=== PATIENT | male | born 1950 | race Caucasian/White ===

== ENCOUNTER 2016-07-18 07:14 | Day surgery (SDC) | payer OTHER ==
[~2016-07-18 07:14] MED LIST: Famotidine IV* 10 MG/ML 2 ML (20 mg) IV ONE; HYDROcodone/ACETAMIN 5-325 MG* 1 TAB PO PRN; Morphine INJ* 2 MG/ML 1 ML SYRINGE IV PRN; PROCHLORPERAZINE INJ 5 MG/ML 2 ML VIAL IV PRN
[2016-07-18] MEDS ORDERED: Buffered Lidocaine 0.9% SYRIN* 5 ML/SYR SYRINGE ONE (07:21)
[2016-07-18] MEDS ORDERED: Famotidine IV* 10 MG/ML 2 ML (20 mg) ONE (07:21)
[2016-07-18] MEDS ORDERED: fentaNYL* 50 MCG/ML 2 ML VIAL (100 MCG VIAL) ONE ×2 (08:14→10:37)
[2016-07-18] MEDS ORDERED: KETAMINE HCL* 50 MG/ML 10 ML VIAL ONE (08:14)
[2016-07-18] MEDS ORDERED: Midazolam* 1 MG/ML 5 ML VIAL (5 MG) ONE (08:14)
[2016-07-18] MEDS ORDERED: Gelatin ADSORBABLE (OPHTH)* OPHTH.FILM ONE ×2 (09:25→10:02)
[2016-07-18] MEDS ORDERED: Lidocaine 2% EPI 1:200000 MPF* 20 ML VIAL ONE (09:25)
[2016-07-18] MEDS ORDERED: Gelfoam 12-7 ADSORBABL SPONGE* 1 EA SPONGE ONE ×2 (09:25→10:02)
[2016-07-18] MEDS ORDERED: Oxymetazoline 0.05% NASAL SPR* 15 ML BTL ONE (09:25)
[2016-07-18] MEDS ORDERED: Propofol* 10 MG/ML 20 ML BTL IV PUSH ONE (09:54)
[2016-07-18] MEDS ORDERED: Neostigmine Methylsulfate* 2 MG/2 ML SYRINGE ONE (09:54)
[2016-07-18] MEDS ORDERED: Ondansetron INJ* 2 MG/ML VIAL ONE (09:54)
[2016-07-18] MEDS ORDERED: Glycopyrrolate IV* 0.2 MG/ML 1 ML VIAL ONE (09:54)
[2016-07-18] MEDS ORDERED: Dexamethasone IV* 4 MG/ML 1 ML (4 MG) ONE (09:54)
[2016-07-18] MEDS ORDERED: Lidocaine 2% PF * 5 ML VIAL ONE (09:54)
[2016-07-18] MEDS ORDERED: hydrALAZINE IV* 20 MG/ML VIAL ONE (10:08)
[2016-07-18] MEDS ORDERED: Labetalol IV* 5 MG/ML 20 ML VIAL ONE (10:29)
[2016-07-18] MEDS: fentaNYL* 50 MCG/ML 2 ML VIAL (100 MCG VIAL) IV PRN ×2 (10:37→10:58)
[2016-07-18] MEDS ORDERED: HYDROcodone/ACETAMIN 5-325 MG* 1 TAB ONE (10:37)
[2016-07-18 11:38] VITALS: BP 134/83
--- NOTE | 2016-07-18 16:29 | OP ---
DATE OF OPERATION: 07/18/16 - [facility] DATE OF : 50. SURGEON: Sim Brnener MD. ANESTHESIOLOGIST: Ricky Unger MD ANESTHESIA: General. PRE-OPERATIVE DIAGNOSIS: Chronic sinusitis. POST-OPERATIVE DIAGNOSIS: Chronic sinusitis. OPERATIVE PROCEDURE: Bilateral video endoscopic maxillary antrostomy, anterior and posterior ethmoidectomy, bilateral. BRIEF HISTORY: This 66-year-old gentleman with chronic purulent rhinorrhea and chronic symptoms of sinusitis with nasal obstruction, not improving with medical management including prolonged course of oral steroids and prolonged courses of oral antibiotics and nasal steroids with nasal washes. DESCRIPTION OF PROCEDURE: The patient was taken to the operating room, general anesthesia was given and patient was intubated. The nose was decongested with Afrin placed pledgets. A 0-degree telescope, 30-degree telescope and other endoscopic sinus surgery instruments including a CT scan and microshaver were utilized. We turned our attention to the left side initially infiltrating the area of uncinate and middle turbinate with 2% lidocaine with epinephrine and subsequently uncinate process was identified and peeled out anteriorly using microshaver to remove it completely. The antrostomy was enlarged and copiously irrigated. The ethmoidal bulla was then resected coursing through the posterior cells and superiorly from the skull base to the nasal frontal duct area, laterally towards lamina papyracea. Small piece of Gelfilm, Gelfoam was used as a spacer between the middle turbinate and the lateral nasal wall. We turned our attention to the right side. Here too the uncinate process was identified. Thick purulent material was suctioned and sent for cultures and sensitivities for both aerobic and anaerobic. Further resection was carried out of the ethmoidal bulla and then subsequently through the lamella posteriorly and superiorly to the nasal frontal duct area laterally. Both spicules were removed. The area was packed with Gelfilm and Gelfoam. The patient was then awakened and sent to recovery room in stable condition. Instrument and sponge count correct. Blood loss minimal. [id number] #: [id number] MTDD
== END 2016-07-18 11:55 | disposition home or self-care (01) ==
LOC: OR 07:14
PROVIDERS: ATTEND Otolaryngology
DX: J32.4 Chronic pansinusitis (principal); J31.0 Chronic rhinitis; Z87.891 Personal history of nicotine dependence; I10 Essential (primary) hypertension
CPT/HCPCS: 87070; 87073; 87077; 87116; 87186; 87205; 87206; 88305; A9270-GY; J0360; J1100; J2250; J2405; J2704; J3010

== ENCOUNTER 2017-09-24 14:01 | Emergency (ER) | payer MEDICARE, OTHER ==
[2017-09-24 14:23] VITALS: BP 138/87
--- NOTE | 2017-09-24 15:14 | UC ---
Respiratory Complaint HPI - HPI Summary HPI Summary: The pt is a 67 y/o male presenting to c/o vomiting since about 2 weeks ago worse today. He notes weight loss of 9-10 lbs , bilateral temporal FOX rated at 10/10 at its worst, oral abscess in the upper jaw ( 1 month ago, alevuiated by a salty water gargle) , light headedness, chills , insomnia, subjective fever , back aches , and cough. He denies abd pain , rash , and dysuria. The pt had a FESS about a year ago and is concerned about a sinus infection. This is scribe Bridgette Driver documenting for attending Dr. Elias Villa. I, Dr. Elias Villa , personally performed the services described in this documentation as scribed in my presence and it is both accurate and complete. - History of Current Complaint Chief Complaint: UCRespiratory Stated Complaint: WEIGHT LOSS, RESP ISSUES Time Seen by Provider: 09/24/17 15:01 Hx Obtained From: Patient Onset/Duration: Gradual Onset, Lasting Weeks - 2 weeks, Still Present, Worse Since - Today Timing: Constant Severity Initially: Severe Severity Currently: Severe Pain Intensity: 9 Pain Scale Used: 0-10 Numeric Associated Signs And Symptoms: Positive: Fever - Subjective - Allergies/Home Medications Allergies/Adverse Reactions: Allergies Allergy/AdvReac Type Severity Reaction Status Date / Time oxycodone Allergy GI Upset Verified 09/24/17 14:23 ENVIRONMENTAL Allergy Congestion Uncoded 09/24/17 14:23 PMH/Surg Hx/FS Hx/Imm Hx Previously Healthy: No - PMHx of Sinusitis Cardiovascular History: Hypertension - Not in meds - Surgical History Surgical History: Yes Surgery Procedure, Year, and Place: detached retina, cataract surgery. Right shoulder repair 2013 - Family History Known Family History: Negative: Cardiac Disease, Hypertension, Diabetes - Social History Occupation: Retired Lives: With Family Alcohol Use: Daily Alcohol Amount: 1-2 drinks a day Substance Use Type: None Smoking Status (MU): Former Smoker Amount Used/How Often: smoked for approx 10 yrs 1ppd When Did the Patient Quit Smoking/Using Tobacco: quit 30 yrs ago Review of Systems Constitutional: Other - Positive: weight loss Gastrointestinal: Other - Abscess in the upper jaw 1 month ago Neurological: Headache - Bilateral at the temporal region All Other Systems Reviewed And Are Negative: Yes Physical Exam Triage Information Reviewed: Yes Vital Signs: Initial Vital Signs Temp 101.4 F 09/24/17 14:16 Pulse 111 09/24/17 14:16 Resp 18 09/24/17 14:16 BP 138/87 09/24/17 14:16 Pulse Ox 98 09/24/17 14:16 Diagnostic Evaluation - Laboratory O2 Sat by Pulse Oximetry: 98 Re-Evaluation - Re-Evaluation First Eval Re-Evaluation Time: 15:50 Change: Unchanged - The pt reports 4 episodes of blurry vision in the lower visual field of the R eye in the last 3 weeks. Each episode lasts 15 minutes. The pt who usually uses lenses bilaterally denies pain, rash or any visual deficits. There is no good visualization of the retina on exam. The provider advised the patient to visits his hearing specialist. Respiratory Course/Dx - Course Course Of Treatment: NO SOURCE OF FEVER FOUND OTHER THAN SINUSITIS. DISCUSSED GOING TO THE EMERGENCY DEPARTMENT FOR FURTHER EVALUATION AND CARE IF HE DOES NOT IMPROVE OR WORSENS. RX AUGMENTIN. LABS; CRP, CBC, CMP, PENDING. F/U OPHTHALMOLOGY FOR THE INTERMITTENT BLURRED VISION IN THE RIGHT EYE. - Differential Dx/Diagnosis Provider Diagnoses: SINUSITIS. FEVER. INTERMITTENT BLURRED VISION RIGHT EYE Discharge - Sign-Out/Discharge Documenting (check all that apply): Patient Departure - Discharge Plan Condition: Stable Disposition: HOME Prescriptions: Amoxicillin/Clavulanate TAB* [Augmentin TAB 875*] 875 mg PO BID #20 tab Patient Education Materials: Sinusitis (ED) Referrals: Татьяна Sanon MD [Primary Care Provider] - Additional Instructions: FOLLOW UP WITH YOUR DOCTOR. GO TO THE EMERGENCY DEPARTMENT FOR ANY WORSENING OF YOUR CONDITION OR QUESTIONS OR CONCERNS. - Billing Disposition and Condition Condition: STABLE Disposition: Home
[2017-09-24] MEDS ORDERED: Ibuprofen TAB* 600 MG PO ONE (15:17)
[2017-09-24] MEDS ORDERED: Ibuprofen TAB* 600 MG ONE (15:25)
[2017-09-24 18:57] LABS: ABS Basophils 0 10^3/ul (0-0.2); ABS Eosinophils 0 10^3/ul (0-0.6); ABS Lymphocytes 0.9 10^3/ul (1.0-4.8); ABS Monocytes 0.9 10^3/ul (0-0.8); ABS Neutrophils 12.2 10^3/ul (1.5-7.7); ABS Nucleated RBC 0 10^3/ul; Eosinophil % 0 % (0-6); Hematocrit 42 % (42-52); Hemoglobin 14.6 g/dl (14.0-18.0); Lymphocyte % 6.7 % (25-47); Mean Corpuscular HGB Conc 35 g/dl (31-36); Mean Corpuscular Hemoglobin 35 pg (27-31); Mean Corpuscular Volume 100 fL (80-94); Mean Platelet Volume 8.2 um3 (7.4-10.4); Nucleated Red Blood Cells % 0.1; Platelet Count 228 10^3/ul (150-450); Red Blood Count 4.17 10^6/ul (4.00-5.40); Red Cell Distribution Width 14 % (10.5-15); White Blood Count 14.1 10^3/ul (3.5-10.8)
[2017-09-24 19:15] LABS: EGFR Non-African American 71.2 (>60)
--- NOTE | 2017-09-25 12:33 | UC ---
- Progress Note Progress Note: CALLED AND SPOKE TO PT. INFORMED OF ELEVATED CRP, WBC AND LOW ELECTROLYTES. PT STATES HE IS FEELING MUCH BETTER TODAY THAN YESTERDAY. EVEN WENT OUT AND MOWED THE LAWN. ADVISED TO FOLLOW-UP WITH HIS PCP AND HAVE REPEAT LABS IN THE NEXT FEW DAYS. PT AGREES TO DO THIS. ALSO ADVISED TO GO TO THE ED WITHOUT FAIL IF HIS SX WORSEN. - VINICIUS FLORES MD Re-Evaluation - Re-Evaluation First Eval Re-Evaluation Time: 15:50 Change: Unchanged - The pt reports 4 episodes of blurry vision in the lower visual field of the R eye in the last 3 weeks. Each episode lasts 15 minutes. The pt who usually uses lenses bilaterally denies pain, rash or any visual deficits. There is no good visualization of the retina on exam. The provider advised the patient to visits his eyeglass lens grinder. Discharge - Sign-Out/Discharge Documenting (check all that apply): Post-Discharge Follow Up - Discharge Plan Condition: Stable Disposition: HOME Prescriptions: Amoxicillin/Clavulanate TAB* [Augmentin TAB 875*] 875 mg PO BID #20 tab Patient Education Materials: Sinusitis (ED) Referrals: Татьяна Sanon MD [Primary Care Provider] - Additional Instructions: FOLLOW UP WITH YOUR DOCTOR. GO TO THE EMERGENCY DEPARTMENT FOR ANY WORSENING OF YOUR CONDITION OR QUESTIONS OR CONCERNS. - Billing Disposition and Condition Condition: STABLE Disposition: Home
== END 2017-09-24 15:45 | disposition home or self-care (01) ==
LOC: UCEAST 14:01
DX: J32.9 Chronic sinusitis, unspecified (principal); R50.9 Fever, unspecified; H53.8 Other visual disturbances; Z88.5 Allergy status to narcotic agent; Z87.891 Personal history of nicotine dependence
CPT/HCPCS: 36415; 80053; 85025; 86140; 99212; A9270-GY; G0463